=== PATIENT | female | born 1950 | race Caucasian/White ===

== ENCOUNTER 2017-01-20 10:39 | Inpatient (IN) | payer OTHER ==
--- NOTE | 2017-01-20 10:46 | EDPHY ---
HPI/HX/ROS/PE/MDM Narrative: CHIEF COMPLAINT: Fall, right-sided vision deficit, rib pain HPI: The patient is a 65 y/o female, with a history of leukemia, arriving via EMS with her brother after a fall with unknown down time, vision deficits, and headache. She was last seen normal last night around 20:30, about 14 hours ago. She tells me she had a headache yesterday, stood up and felt lightheaded, then fell and hit the left side of her chest, but she cannot tell me what time this occurred. Her brother found her this morning conscious on the ground in her room. EMS reports they found her with a fixed left-sided gaze with notable left- sided preference. EMS states she seemed unable to see anything in her right field of vision and would not track objects. The patient does not complain of a vision deficit, but when asked what she can see she replied "nothing, but I can tell it's light." She currently complains of a headache and left-sided rib pain. REVIEW OF SYSTEMS: Aside from elements discussed in the HPI, a comprehensive 10-point review of systems was reviewed and is negative. PMH: Leukemia SOCIAL HISTORY: Brother at bedside. Denies drug or alcohol abuse. Oncologist: [facility] PHYSICAL EXAM: General:Patient is alert, in no acute distress. ENT:Eyes are normal to inspection. EOMI. ENT inspection normal. Neck: Normal inspection. Full range of motion. Respiratory: No respiratory distress. Breath sounds normal bilaterally. Chest: Left upper chest wall tenderness. Cardiovascular: Regular rate and rhythm. Strong peripheral pulses. Normal cap refill. Abdomen:The abdomen is nontender to palpation. There are no peritoneal signs. Back: Normal to inspection. No tenderness to palpation. Skin: Normal color. No rash. Warm and dry. Extremities: Normal appearance. Full range of motion. Neuro: Oriented x3. Not able to track objects or make eye contact. No gaze deviation noted. Moves all extremities equally. ED Course: IV established by EMS. CBC, CHEM, troponin, TSH ordered. Patient is outside of the window for a stroke alert as she was last seen normal 14 hours ago. STAT Head CT ordered. 1116: Head CT shows nothing acute. 1134: Consulted with Dr. Morales, neurology. He recommends CT angio of her head despite being outside the stroke alert window. If negative he would like a brain MRI with and without IV contrast and if positive then contact [facility]. 1340: Consulted with Dr. Morales in the ED. Patient's CTA is negative. Dr. Morales ordered a CTA neck, which is pending as well as brain MRI. He will consult on her during admission. 1445: Spoke with hospitalist service. Dr. Mason accepts admission. 1500: Patient noted by family to have shaking movement of her left arm and legs but speaking and conscious throughout. On my exam, clear left-sided gaze deviation but patient speaking normally. I have asked Dr. Morales to be re-paged. 1510: Summoned by nurse secondary to tonic-clonic seizure. Patient given 2mg IV ativan with resolution of seizure activity. Strong pulse throughout. Seizure lasted approximately 1-2 minutes. MDM: This patient presents with AMS and very odd vision abnormalities including waxing and waning of left gaze deviation. As noted in chart, patient presents well outside the window for tPA. The etiology of her symptoms is unclear but there is no evidence of SAH, SDH, meningitis, or ischemic CVA. - Data Points Imaging Results: Imaging Impressions Head CT 01/20/17 10:45 Impression: Head CT normal. No hemorrhage or mass. Results called and discussed with Jerrod Moody MD, at 01/20/2017 11:18 General information for patients regarding this examination can be found at [email or web address]. If you have questions or comments about this report, please contact me at ([facility]) or [phone] (cell). Head CTA 01/20/17 11:36 Impression: Negative CTA of the brain. Specifically no large vessel thrombosis. Results discussed with Dr. Sergey Morales at 1:00 PM Neck CTA 01/20/17 13:12 Impression: Normal. No flow limiting stenosis in the carotid or vertebral circulation. Results discussed with Dr. Sergey Morales at 2:50 PM. Note: All stenoses are calculated using NASCET Criteria. General information for patients regarding this examination can be found at [email or web address]. If you have questions or comments about this report, please contact me at ([facility]) or [phone] (cell). Imaging: Discussed imaging studies w/ bilingual call center representative Radiologist, I viewed and interpreted images myself Laboratory Results: Laboratory Results 01/20/17 10:45 01/20/17 10:45 01/20/17 01/20/17 01/20/17 10:45 10:45 10:45 WBC 8.69 10^3/uL 10^3/uL (3.80-9.50) RBC 4.25 10^6/uL 10^6/uL (4.18-5.33) Hgb 13.3 g/dL g/dL (12.6-16.3) Hct 39.8 % % (38.0-47.0) MCV 93.6 fL fL (81.5-99.8) MCH 31.3 pg pg (27.9-34.1) MCHC 33.4 g/dL g/dL (32.4-36.7) RDW 17.7 % H % (11.5-15.2) Plt Count 128 10^3/uL L 10^3/uL (150-400) MPV 10.4 fL fL (8.7-11.7) Neut % (Auto) 84.2 % H % (39.3-74.2) Lymph % (Auto) 7.6 % L % (15.0-45.0) Arthur % (Auto) 7.4 % % (4.5-13.0) Eos % (Auto) 0.1 % L % (0.6-7.6) Baso % (Auto) 0.2 % L % (0.3-1.7) Nucleat RBC Rel Count 0.0 % % (0.0-0.2) Absolute Neuts (auto) 7.32 10^3/uL H 10^3/uL (1.70-6.50) Absolute Lymphs (auto) 0.66 10^3/uL L 10^3/uL (1.00-3.00) Absolute Monos (auto) 0.64 10^3/uL 10^3/uL (0.30-0.80) Absolute Eos (auto) 0.01 10^3/uL L 10^3/uL (0.03-0.40) Absolute Basos (auto) 0.02 10^3/uL 10^3/uL (0.02-0.10) Absolute Nucleated RBC 0.00 10^3/uL 10^3/uL (0-0.01) Immature Gran % 0.5 % % (0.0-1.1) Immature Gran # 0.04 10^3/uL 10^3/uL (0.00-0.10) PT 14.3 SEC SEC (12.0-15.0) INR 1.12 (0.83-1.16) APTT 26.2 SEC SEC (23.0-38.0) Sodium 137 mEq/L mEq/L (134-144) Potassium 3.9 mEq/L mEq/L (3.5-5.2) Chloride 99 mEq/L mEq/L (97-110) Carbon Dioxide 24 mEq/l mEq/l (22-31) Anion Gap 14 mEq/L mEq/L (8-16) BUN 8 mg/dL mg/dL (7-23) Creatinine 0.7 mg/dL mg/dL (0.6-1.0) Estimated GFR > 60 Glucose 122 mg/dL H mg/dL (70-100) Calcium 10.0 mg/dL mg/dL (8.5-10.4) Troponin I 0.018 ng/mL ng/mL (0-0.034) General Initial Vital Signs: Initial Vital Signs Temperature (C) 36.1 C 01/20/17 10:39 Heart Rate 101 H 01/20/17 10:39 Respiratory Rate 19 01/20/17 10:39 Blood Pressure 171/83 H 01/20/17 10:39 O2 Sat (%) 98 01/20/17 10:39 O2 Delivery Mode Nasal Cannula O2 (L/minute) 15 Allergies/Adverse Reactions: No Known Allergies Allergy (Unverified 01/20/17 10:56) Home Medications: Medication Instructions Recorded 250 Cc With 4 Gm Mag 4 gm IV DAILY@1100 01/20/17 Butalb/Acetaminophen/Caffeine 1 each PO Q4H PRN 01/20/17 [Iaompn-Xfvktawj-Fpbp 50-325-40] Calcium Carbonate/Vitamin D3 1 each PO DAILY 01/20/17 [Calcium 500-Vit D3 200 Tablet] Cetirizine [ZyrTEC 10 mg (*)] 10 mg PO DAILY PRN 01/20/17 Desonide 0.05% [Desonide 0.05% 1 kieran TP BID PRN 01/20/17 Cream (*)] Herbals/Supplements -Info Only 1 ea PO DAILY 01/20/17 LORazepam [Ativan (*)] 0.5 mg PO Q4 PRN 01/20/17 Multivitamins [Multivitamin (*)] 1 each PO DAILY 01/20/17 Pantoprazole Sodium [Protonix 40mg 40 mg PO DAILY 01/20/17 (*)] Posaconazole [Noxafil] 300 mg PO DAILY@1200 01/20/17 Potassium Cl [Klor-Con 20 meq (*)] 20 meq PO BID 01/20/17 Prochlorperazine Maleate 10 mg PO Q6 PRN 01/20/17 [Compazine 10mg (*)] Sulfamethoxazole/Trimethoprim 1 tab PO MOWEFR@0800 01/20/17 [Sulfamethoxazole-Tmp Ds Tablet] Ursodiol [Actigall 300MG (*)] 300 mg PO BID 01/20/17 Valacyclovir HCl [Valacyclovir] 500 mg PO BID 01/20/17 LORazepam [Ativan inj 2 mg/ml (*)] 1 - 2 mg IVP ONCE PRN #0 inj 01/21/17 levETIRAcetam [Keppra Inj 500 mg/5 500 mg IV BID vial 01/21/17 ml (*)] Departure - Departure Disposition: [facility] Inpatient Acute Clinical Impression: Vision abnormalities, Vision loss Headache Qualifiers: Headache type: other headache syndrome Qualified Code(s): G44.89 - Other headache syndrome Cortical blindness, unspecified side of brain Qualifiers: Laterality: unspecified laterality Qualified Code(s): H47.619 - Cortical blindness, unspecified side of brain Condition: Fair Report Scribed for: Jerrod Moody Report Scribed by: Yaritza Ellsworth Date of Report: 01/20/17 Time of Report: 10:47 Physician Review and Approval Statement: Portions of this note were transcribed by an ED scribe. I personally performed the history, physical exam, and medical decision making; and confirm the accuracy of the information in the transcribed note.
[2017-01-20 10:53] LABS: % IMMATURE GRANULYOCYTES 0.5 % (0.0-1.1); ABSOLUTE IMMATURE GRANULOCYTES 0.04 10^3/uL (0.00-0.10); ADD DIFF? NO; ADD MORPH? NO; ADD SCAN? NO; ATYPICAL LYMPHOCYTE FLAG 0 (0-99); FRAGMENT RBC FLAG 20 (0-99); HEMATOCRIT 39.8 % (38.0-47.0); HEMOGLOBIN 13.3 g/dL (12.6-16.3); LEFT SHIFT FLG 0 (0-99); LIPEMIA HEMOLYSIS FLAG 80 (0-99); MEAN CELL HEMOGLOBIN 31.3 pg (27.9-34.1); MEAN CELL HEMOGLOBIN CONCENTR. 33.4 g/dL (32.4-36.7); MEAN CELL VOLUME 93.6 fL (81.5-99.8); MEAN PLATELET VOLUME 10.4 fL (8.7-11.7); PLATELET CLUMPS FLAG 0 (0-99); PLATELET COUNT 128 10^3/uL (150-400); RED BLOOD CELL COUNT 4.25 10^6/uL (4.18-5.33); RED CELL DISTRIBUTION WIDTH 17.7 % (11.5-15.2)
[2017-01-20 11:06] LABS: INR 1.12 (0.83-1.16); PROTIME(PATIENT) 14.3 SEC (12.0-15.0)
[2017-01-20 11:07] LABS: APTT 26.2 SEC (23.0-38.0)
[2017-01-20 11:15] LABS: ANION GAP 14 mEq/L (8-16); CARBON DIOXIDE 24 mEq/l (22-31); CHLORIDE 99 mEq/L (97-110); CREATININE 0.7 mg/dL (0.6-1.0); GLOMERULAR FILTRATION RATE > 60; GLUCOSE 122 mg/dL (70-100); POTASSIUM 3.9 mEq/L (3.5-5.2); SODIUM 137 mEq/L (134-144)
[2017-01-20 11:27] LABS: TROPONIN I 0.018 ng/mL (0-0.034)
[2017-01-20] MEDS ORDERED: IOPAMIDOL (ISOVUE 370) 100 ML BTL IV ONE ×2 (11:46→13:27)
[2017-01-20] MEDS ORDERED: ONDANSETRON 4 MG/2 ML VIAL IVP ONE (13:21)
--- NOTE | 2017-01-20 14:53 | GCON ---
[f rep st] CONSULTATION EMERGENCY NEUROLOGY CONSULTATION DATE OF CONSULTATION: 01/20/2017 BILLING INFORMATION: Fifty total minutes on floor time reviewing history, imaging and discussing imaging with Radiology, along with direct counseling with the patient, her family, and Emergency Department providers. HISTORY OF PRESENT ILLNESS: The patient is a very pleasant 66-year-old lady, who is in remission from leukemia, who is status post stem cell transplant 60 days ago and chemotherapy. She had no INDEPENDENT PRODUCER involvement, as far as her brothers are aware of. There are two brothers who are present and providing collateral history. Over the last three weeks, she has been having mild episodic headaches , but no neurologic symptoms. She was then found down this morning by family with visual field deficits and headache. Her last known normal was around 8:30 p.m. last night and therefore she presented to the Emergency Department around 14 hours after her last known normal. The patient has some patchy recall of the events, stating that she fell in her ribs, but does not provide much detail beyond that. When EMS evaluated the patient, they noticed a gaze preference. It is not entirely clear to me whether it was left or right. In the Emergency Department, Fransisco may have seen both a right and left gaze preference. In any case, it appears that she is mostly being reported to have a left gaze preference, with being unable to "see" and not being particularly disturbed by it. REVIEW OF SYSTEMS: A 10-point review of systems was done and only pertinent to the HPI. PAST MEDICAL HISTORY: Leukemia. SOCIAL HISTORY: She has family at bedside, two brothers. FAMILY HISTORY: Not obtained. PHYSICAL EXAM: VITAL SIGNS: The patient's blood pressure is 163/81, saturating at 98%, afebrile at 36.1. GENERAL: The patient is awake and alert. Normal level of awareness on exam. She can repeat 5/5, follows commands, and has normal expressive language. NEUROLOGIC: On cranial nerve exam, the patient has a marked left gaze preference that is somewhat intermittent in that her eyes will come to midline intermittently and she can look to the far right lateral gaze (at least once on exam). Otherwise, on the majority of the exam, she had a left gaze deviation/preference. In terms of her visual acuity, she stated she could not see "anything" from either eye. She stated she could see light only and was not particularly concerned about this. She had no facial weakness. On motor exam, she had normal strength in all 4 limbs. Normal light touch sensation. Coordination was not tested. IMPRESSION AND PLAN: 1. History of leukemia. 2. Headache with visual disturbance. The patient has an abnormal neurologic exam with a left gaze preference and loss of vision. The left gaze preference could localize as a left frontal destructive lesion, or a seizure focus from the right frontal regions. The patient has not had any witnessed seizure activity and has normal level of awareness. However, complete cortical blindness would imply bilateral extensive lesions. Therefore, she may have multifocal abnormalities causing neglect, or a right hemisphere lesion causing seizures and visual symptoms. Not entirely clear at this point. The head CT without contrast shows no abnormalities, stat CT of the head showed no large vessel occlusion, and CTA of the neck is pending. If she has any acute neurovascular abnormalities on the CTA of the neck, we will immediately consult with [facility] and review the case and check if she would be a candidate for any interventional measures. If there are no large vessel occlusions and/or she is not a candidate for intervention, the plan will be to admit to the Hospitalist Service with MRI brain with and without contrast for further evaluation. Depending on what we find on the above imaging, it will direct the rest of her evaluation. I will follow along with her imaging and sign her out to my colleague on the Neurology Service who starting tomorrow if she is hospitalized at [facility]. Thank you for this consultation. ADDENDUM: The patient had generalized seizure in ED, given Ativan. CTA neck - negative, Plan: Keppra IV 750 mg X 1 now, followed by Keppra 500 mg q 12 hour (first 500 mg dose tonight). MRI brain w/ and w/o. Neurology will f/u on the above. /[id number]/MODL MTDD
[2017-01-20] MEDS ORDERED: LORazepam 2 MG/ML INJ ONE (15:11)
[2017-01-20] MEDS ORDERED: LORazepam 2 MG/ML INJ IVP ONE (15:13)
[2017-01-20] MEDS ORDERED: levETIRAcetam 750 MG in NS 100 ML IV ONE (15:19)
[2017-01-20 15:36] VITALS: RESP 16
[2017-01-20] MEDS ORDERED: ASPIRIN 325 MG TAB PO ONE (15:36)
[2017-01-20] MEDS ORDERED: ONDANSETRON 4 MG/2 ML VIAL IVP PRN (16:03)
[2017-01-20] MEDS ORDERED: ONDANSETRON DISINTEGRATING 4 MG TAB PO PRN (16:03)
[2017-01-20] MEDS ORDERED: ACETAMINOPHEN 650 MG SUPP PR PRN (16:08)
[2017-01-20] MEDS ORDERED: LORazepam 2 MG/ML INJ IVP PRN (16:08)
[2017-01-20] MEDS ORDERED: DESONIDE 0.05% 15 GM CREAM TP PRN (16:16)
[2017-01-20] MEDS ORDERED: ASPIRIN RECTAL 300 MG SUPP PR ONE (16:16)
[2017-01-20] MEDS ORDERED: LORazepam 0.5 MG TAB PO PRN (16:16)
[2017-01-20 16:28] LABS: ALBUMIN 4.4 g/dL (3.5-5.0); BILIRUBIN-CONJUGATED 0.5 mg/dL (0.0-0.5); BILIRUBIN-UNCONJUGATED 0.5 mg/dL (0.0-1.1); TOTAL PROTEIN 7.2 g/dL (6.3-8.2)
--- NOTE | 2017-01-20 17:13 | GHP ---
[f rep st] HISTORY AND PHYSICAL DATE OF ADMISSION: 01/20/2017 CHIEF COMPLAINT: The patient was found down the morning after complaining of headaches. 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 She is followed by the [facility]. She completed her last course of chemotherapy approximately 65 days ago, and underwent a bone marrow transplant 60 days ago. Since that time, she has been living with her son and [id number], and has been doing fairly well. However, over the past few weeks, she began complaining of intermittent headaches, for which she was prescribed Fioricet and an antihistamine. She complained of a worse headache yesterday afternoon, though denied vision changes. She did have some nausea and vomiting last night. When she did not come out of her bedroom this morning, her son checked on her, and found her down on the ground. She was awake and alert at that time. Paramedics were called, and they noted a left gaze deviation. She continued to complain of headache, and she was brought to the ED, where she was evaluated by our neurologist, Dr. Morales, as well as our ED physician, who noted possible cortical blindness findings on exam. During her course in the emergency department, she had a tonic-clonic seizure, and was given 2 mg of IV Ativan followed by a Keppra load. She is admitted to the hospital for further management. During my evaluation, the patient was in a postictal state, and most of the history was gathered by her 2 sons and review of the records. PAST MEDICAL HISTORY: 1. Myelodysplastic syndrome. 2. Leukemia of unknown differentiation. 3. History of sarcoid. 4. History of kidney problems as a child. MEDICATIONS: Please see [email or web address] for complete updated outpatient medication list. ALLERGIES: No known drug allergies. SOCIAL HISTORY: The patient is a retired teacher. She previously lived independently in [place], though is now staying with her son and [id number] since her bone marrow transplant 2 months ago. She is a lifetime nonsmoker, and there is no reported alcohol or drug use. FAMILY HISTORY: Reviewed and noncontributory. REVIEW OF SYSTEMS: A 10-point review of systems was performed, is negative except as per HPI. OBJECTIVE: VITAL SIGNS: Temperature is 36.1, blood pressure 171/83, heart rate 101, respiratory rate 19. She is 98% on room air, although in her postictal state, she is currently on a 15-liter nonrebreather oxygen mask. GENERAL: The patient is obtunded in a postictal state. She does arouse to sternal rub. HEENT: Head is atraumatic, normocephalic. Her gaze is in the superolateral right direction. Her pupils are 2-3 mm and reactive bilaterally. Oropharynx is clear. Mucous membranes are dry. NECK: Supple. There is no JVD. HEART: Regular rate and rhythm without murmur. LUNGS: Clear to auscultation bilaterally. ABDOMEN: Soft, nondistended, nontender with normoactive bowel tones. EXTREMITIES: Without cyanosis, clubbing, or edema. NEUROLOGIC: Abnormal gaze deviation, as described above. The patient does not follow commands, given her postictal state. There was no reported focal weakness prior to her seizure. LABORATORY DATA: CBC reveals a normal white count, platelets are slightly low at 128. INR is 1.12. Basic metabolic panel is within normal limits. Glucose is 122. Troponin is negative. Head CT in the emergency department is negative for acute stroke, hemorrhage or mass, CTA head and neck is also performed, and reveals no large vessel occlusions or flow-limiting stenosis in the carotid or vertebral circulation. ASSESSMENT AND PLAN: The patient is a 66-year-old female with history of myelodysplastic syndrome, was recently diagnosed with leukemia, and underwent a bone marrow transplant 60 days ago. She is now admitted to the hospital after being found down with new-onset seizure. 1. 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 I discussed the case with Dr. Adorno from [facility] and she reports above meds can cause PRES and this is not likely to be GVHD. Prograf and Rapamune are held. Expect her blindness will improve as the vasogenic edema resolves. Pt will be transferred to [facility] in the am. They will phone the unit when a bed is assigned. 2. Seizure. New onset. Likely secondary to PRES. The patient has been given 2 mg of IV Ativan and loaded with Keppra. Will continue Keppra 500 mg IV twice daily, as well as seizure precautions and frequent neuro checks. 3. Leukemia (?AML), with a history of myelodysplastic syndrome. The patient's primary oncologist is Dr. Mai with the [facility]. She had a bone marrow biopsy 6 weeks after her stem cell transplant, which was clear for leukemia. She has also recently underwent a lumbar puncture without evidence of leukemia in her cerebrospinal fluid. Will continue her Valtrex and anti-fungal. Immunosuppressant agents held due to above. She is certainly at risk for GVHD without these. Primary oncology team to continue management upon transfer to [facility]. 4. Disposition. Patient is admitted to inpatient status. Plan is to transfer her to [facility] where her primary oncology team can care for her in the AM. Accepting physician is Dr. Adorno. 5. Deep vein thrombosis prophylaxis. Lovenox. 6. Code status. I had a lengthy discussion with her 2 sons regarding her code status, and they both note that they have had discussions with their mother in the past, and she firmly wishes to be do not resuscitate, which will be honored. /[id number]/MODL MTDD
[2017-01-20] MEDS ORDERED: TACROLIMUS PO SCH (18:00)
[2017-01-20] MEDS ORDERED: GADOBUTROL 10 ML VIAL IVP ONE (18:32)
[2017-01-20] MEDS: NS 1,000 ML IV SCH (20:19)
[2017-01-20] MEDS: levETIRAcetam 500 MG in NS 100 ML IV SCH (22:35)
[2017-01-20] MEDS: URSODIOL 300 MG CAP PO SCH (22:56)
[2017-01-20] MEDS: POTASSIUM CL 20 MEQ TAB PO SCH (22:56)
[2017-01-20] MEDS: valACYclovir 500 MG TAB PO SCH (22:56)
[2017-01-21] MEDS: NS 1,000 ML IV SCH (04:56)
[2017-01-21 07:22] VITALS: BP 127/66; PULSE 84; TEMP 98; O2SAT 98
[2017-01-21] MEDS ORDERED: SIROLIMUS 0.5 MG PO SCH (08:00)
[2017-01-21] MEDS ORDERED: SULFAMETHOX/TMP 800/160 MG 1 TAB PO SCH (08:00)
[2017-01-21] MEDS ORDERED: PANTOPRAZOLE SODIUM 40 MG TAB PO SCH (09:00)
[2017-01-21] MEDS ORDERED: ENOXAPARIN 40 MG/0.4 ML SYR SC SCH (09:00)
[2017-01-21] MEDS: levETIRAcetam 500 MG in NS 100 ML IV SCH (09:39)
[2017-01-21] MEDS ORDERED: oxyCODONE IR 5 MG TAB PO PRN (09:49)
[2017-01-21] MEDS ORDERED: HYDROmorphONE/DILAUDID 2 MG/ML INJ IVP PRN (09:49)
[2017-01-21] MEDS: valACYclovir 500 MG TAB PO SCH (11:18)
[2017-01-21] MEDS: POTASSIUM CL 20 MEQ TAB PO SCH (11:18)
[2017-01-21] MEDS: URSODIOL 300 MG CAP PO SCH (11:18)
--- NOTE | 2017-01-21 11:21 | GDS ---
[f rep st] TRANSFER SUMMARY TRANSFER DIAGNOSES: 1. Acute encephalopathy and cortical blindness thought to be due to posterior reversible encephalop athy syndrome. 2. New onset seizure. 3. Leukemia/acute myeloid leukemia with history of myelodysplastic syndrome. CONSULTANTS: Sergey Morales MD, neurology. HOSPITAL COURSE AND STAY BY PROBLEM: The patient presented to the hospital yesterday after sustaini ng a fall at home and reporting a headache. Upon evaluation in the emergency department she was not ed to have cortical blindness and also had a witnessed tonic-clonic seizure. She was loaded on Kepp ra. Seizure was treated with IV Ativan. On day of transfer, the patient's vision is improving. When I discussed the case with my colleague Dr. Mason who has arranged for transfer to [facility] so she could be cared for by her hematology team. Suspected fall yesterday with left shoulder and rib pain: On day of transfer, the patient reports p ain in her left shoulder and ribs. She should have further imaging of her shoulder to ensure there is no fracture. PHYSICAL EXAM: VITAL SIGNS: At time of transfer blood pressure 127/66, pulse of 84, respiratory ra te 16, O2 saturation 98% on 4 L. Temperature afebrile. GENERAL: No acute distress. Lethargic but arousable. HEAD: Normocephalic, atraumatic. EYES: PERRLA. There is no gaze deviation. CARDIOV ASCULAR: S1-S2. PULMONARY: Lungs are clear. Diminished breath sounds left base. NEURO: Cranial nerves 2-12 grossly intact. Muscle strength 5/5 bilateral upper extremity malt specifications control assistant strength. Moves valerio th legs. Range of motion is limited in left shoulder due to pain. DIAGNOSTIC STUDIES: During this hospital stay a brain MRI done 01/20/2017, abnormal hyperintense T2 signal throughout the cortex of the bilateral parietal and occipital lobes with diffuse leptomening eal enhancement and minimal gyriform cortical enhancement, suspicious for PRES. Please refer to rep ort for full details. CTA of the head and neck, refer to report. Head CT done 01/20/2017, refer to report. TRANSFER MEDICATIONS: Please refer to transfer medication document for details. TRANSFER INSTRUCTIONS: The patient will be transferred to [facility] so she can be c ared for by her primary Hematology/Oncology team. She has been accepted by Dr. Adorno. I do recom mended that she have continued workup of her altered mental status and seizures as indicated. She s hould also have further imaging of her left shoulder and ribs. Greater than 30 minutes were spent on the discharge and transfer of this patient including ryan centeno and care coordination. /[id number]/MODL
[2017-01-21] MEDS ORDERED: POSACONAZOLE 100 MG TAB.DR PO SCH (12:00)
== END 2017-01-21 12:20 | disposition short-term general hospital (02) | DRG 91 ==
LOC: OBSVTOIN 16:03 → F3N 18:09
PROVIDERS: ADMIT Hospitalist; ATTEND Family Medicine
DX: H47.619 Cortical blindness, unspecified side of brain (principal); G93.40 Encephalopathy, unspecified; C95.90 Leukemia, unspecified not having achieved remission; D46.9 Myelodysplastic syndrome, unspecified; R56.9 Unspecified convulsions; Z66 Do not resuscitate; W19.XXXA Unspecified fall, initial encounter; Y92.013 Bedroom of single-family (private) house as the place of occurrence of the external cause
CPT/HCPCS: 96374; A9585; J1650; J1953; J2060; J2405; Q9967